=== PATIENT | male | born 1990 | race African-American/Black ===

== ENCOUNTER 2019-02-19 07:01 | Emergency (ER) | payer SELFPAY ==
[~2019-02-19] VITALS: Ht 182.9 cm; Wt 72.6 kg
[2019-02-19 07:12] VITALS: BP 122/68
[2019-02-19] MEDS ORDERED: oxyCODONE/APAP 10/325 1 TAB TABLET PO ONE (08:00)
[2019-02-19] MEDS ORDERED: LIDOCAINE 1% Multi-Dose 20 ML VIAL. INJ ONE (08:00)
[2019-02-19] MEDS ORDERED: SULF1TAB24 PO (09:03)
--- NOTE | 2019-02-19 09:04 | PHYS DOC ---
Past Medical History Past Medical History: Hypertension (BERTJESSIESHAYY Vásquez APRN) Past Surgical History: No Surgical History (BERTLISANDROLowellSHAYY Vásquez APRN) Alcohol Use: None Drug Use: None (BERTLISANDROSIMONE EtienneIndu Vásquez APRN) Adult General Chief Complaint Chief Complaint: ABSCESS HPI HPI Patient is a 28 year old [f__sex] who presents with [] (BERTLISANDROSIMONE EtienneIndu Vásquez APRN) HPI Patient is a 28-year-old male with a 2-3 day history of a progressive painful, swollen, red area to his left buttock. He states over the last couple days become so severe that he's been unable to sit. Also he states the pain was so severe he was unable to sleep last night. He denies any fever chills or sweats. He does not have any particular pain with the bowel movement. (BRETT RUTLEDGE DO) Review of Systems Review of Systems Constitutional: Denies fever or chills [] Eyes: Denies change in visual acuity, redness, or eye pain [] HENT: Denies nasal congestion or sore throat [] Respiratory: Denies cough or shortness of breath [] Cardiovascular: No additional information not addressed in HPI [] GI: Denies abdominal pain, nausea, vomiting, bloody stools or diarrhea [] : Denies dysuria or hematuria [] Musculoskeletal: Denies back pain or joint pain [] Integument: Denies rash or skin lesions [] Neurologic: Denies headache, focal weakness or sensory changes [] Endocrine: Denies polyuria or polydipsia [] All other systems were reviewed and found to be within normal limits, except as documented in this note. (BERTLISANDROSIMONE EtienneIndu Vásquez APRN) Current Medications Current Medications Current Medications Medications (Trade) Dose Ordered Sig/Greg Start Time Stop Time Status Last Admin Dose Admin Lidocaine HCl (Lidocaine 1% 20ml Vial) 20 ml 1X ONCE 02/19/19 08:00 02/19/19 08:02 DC 02/19/19 08:14 20 ML Oxycodone/ Acetaminophen (Percocet 10/325) 1 tab 1X ONCE 02/19/19 08:00 02/19/19 08:02 DC 02/19/19 08:13 1 TAB (BRETT RUTLEDGE DO) Allergies Allergies Allergies Coded Allergies Type Severity Reaction Last Updated Verified No Known Drug Allergies 02/19/19 No (BRETT RUTLDEGE DO) Physical Exam Physical Exam Constitutional: Well developed, well nourished, no acute distress, non-toxic appearance. [] HENT: Normocephalic, atraumatic, bilateral external ears normal, oropharynx moist, no oral exudates, nose normal. [] Eyes: PERRLA, EOMI, conjunctiva normal, no discharge. [] Neck: Normal range of motion, no tenderness, supple, no stridor. [] Cardiovascular:Heart rate regular rhythm, no murmur [] Lungs & Thorax: Bilateral breath sounds clear to auscultation [] Abdomen: Bowel sounds normal, soft, no tenderness, no masses, no pulsatile masses. [] Skin: Warm, dry, no erythema, no rash. [] Back: No tenderness, no CVA tenderness. [] Extremities: No tenderness, no cyanosis, no clubbing, ROM intact, no edema. [] Neurologic: Alert and oriented X 3, normal motor function, normal sensory function, no focal deficits noted. [] Psychologic: Affect normal, judgement normal, mood normal. [] (SHAYY JOHNSTON APRN) Current Patient Data Vital Signs Vital Signs Date Time Temp Pulse Resp B/P (MAP) Pulse Ox O2 Delivery O2 Flow Rate FiO2 02/19/19 08:13 20 93 Room Air 02/19/19 07:12 98.6 62 122/68 (86) 98.6 (BRETT RUTLEDGE DO) EKG EKG [] (SHAYY JOHNSTON APRN) Radiology/Procedures Radiology/Procedures Abscess Incision and Drainage with irrigation by wv: [id number] Location: Anesthesia: Local 1% Lidocaine 2.5mL Technique: Irrigated. Disrupted loculations w/ instrumentation Packing: None Complications: Neurovascularly intact post procedure 48 hour wound check. Scar minimization instructions given. (SHAYY JOHNSTON APRN) Course & Med Decision Making Course & Med Decision Making Pertinent Labs and Imaging studies reviewed. (See chart for details) [] (SHAYY JOHNSTON APRN) Dragon Disclaimer Dragon Disclaimer This electronic medical record was generated, in whole or in part, using a voice recognition dictation system. (SHAYY JOHNSTON APRN) Departure Departure Impression: Primary Impression: Abscess Disposition: 01 HOME, SELF-CARE Referrals: NO PCP (PCP) Patient Instructions: Abscess, Incision and Drainage, Care After, Sitz Bath Additional Instructions: Monitor wound for signs of worsening infection- with concerns follow-up as soon as possible. Tylenol and/or ibuprofen as needed for pain as directed on container. Packing needs removed in 24-48 hours you can return to ER if unable to get into a clinic or a primary doctor. Scripts Hydrocodone/Apap 5-325 (NORCO 5-325 TABLET) 1 Each Tablet 1 TAB PO PRN Q6HRS PRN for PAIN, #10 TAB [address] or drink alcohol while taking this medication Prov: SHAYY JOHNSTON APRN 02/19/19 Sulfamethoxazole/Trimethoprim (BACTRIM DS TABLET) 1 Each Tablet 1 TAB PO BID, #14 TAB 0 Refills Prov: SHAYY JOHNSTON APRN 02/19/19 Incision and Drainage Indication: abscess Procedure: The patient was positioned appropriately. Local anesthesia was [5 mL 1% lidocaine]. An incision was then made over the apex of the lesion and [large amount of purulent] material was expressed. The drainage cavity was irrigated and packed with sterile gauze. The patient�s tetanus status updated as needed. The patient tolerated the procedure well. Complications: none. (BRETT RUTLEDGE DO) SHAYY JOHNSTON APRN Feb 19, 2019 09:04 BRETT RUTLEDGE DO Feb 21, 2019 00:20
[2019-02-19] MEDS ORDERED: HYDR-3164 PO (09:10)
== END 2019-02-19 09:54 | disposition home or self-care (01) ==
LOC: ER 07:01
DX: L02.31 Cutaneous abscess of buttock (principal); I10 Essential (primary) hypertension
CPT/HCPCS: 10060; 99283

== ENCOUNTER 2019-02-20 10:13 | Emergency (ER) | payer SELFPAY ==
[~2019-02-20] VITALS: Ht 182.9 cm; Wt 74.8 kg
[~2019-02-20 10:13] MED LIST: HYDR-3164 PO; SULF1TAB24 PO
[2019-02-20 10:20] VITALS: BP 126/90
--- NOTE | 2019-02-20 10:22 | PHYS DOC ---
Past Medical History Past Medical History: Hypertension Past Surgical History: No Surgical History Alcohol Use: None Drug Use: None Adult General Chief Complaint Chief Complaint: WOUND CHECK HPI HPI Patient is a 28 year old medical presents for wound check for an abscess that was drained yesterday. Patient denies any issues with the wound healing. Review of Systems Review of Systems Constitutional: Denies fever or chills [] Musculoskeletal: Denies back pain or joint pain [] Integument: Visit for wound check for an abscess that was drained yesterday Neurologic: Denies headache, focal weakness or sensory changes [] All other systems were reviewed and found to be within normal limits, except as documented in this note. Allergies Allergies Allergies Coded Allergies Type Severity Reaction Last Updated Verified No Known Drug Allergies 02/19/19 No Physical Exam Physical Exam Constitutional: Well developed, well nourished, no acute distress, non-toxic appearance. [] Skin: Left inner buttock with an open wound with the packing, minimal drainage noted on the packing. No erythema around the wound. Back: No tenderness, no CVA tenderness. [] Extremities: No tenderness, no cyanosis, no clubbing, ROM intact, no edema. [] Neurologic: Alert and oriented X 3, normal motor function, normal sensory function, no focal deficits noted. [] Psychologic: Affect normal, judgement normal, mood normal. [] Current Patient Data Vital Signs Vital Signs Date Time Temp Pulse Resp B/P (MAP) Pulse Ox O2 Delivery O2 Flow Rate FiO2 02/20/19 10:20 98.5 70 18 126/90 (102) 100 Room Air 98.5 EKG EKG [] Radiology/Procedures Radiology/Procedures [] Course & Med Decision Making Course & Med Decision Making Pertinent Labs and Imaging studies reviewed. (See chart for details) This is a 28-year-old male patient who presents to the ED for wound check and packing removal from an abscess that was drained yesterday from the left inner buttock, abscess has minimal drainage, packing was removed. Area was covered with clean dry dressing. Patient is on Bactrim. Wound care instructions and return precautions provided. Follow-up with PCP or general surgery 2 weeks. Dragon Disclaimer Dragon Disclaimer This electronic medical record was generated, in whole or in part, using a voice recognition dictation system. Departure Departure Impression: Primary Impression: Wound check, abscess Disposition: 01 HOME, SELF-CARE Condition: STABLE Referrals: NO PCP (PCP) MELISSA BACON MD follow-up with your own doctor or the provided doctor in 2 weeks Patient Instructions: Wound Check Additional Instructions: You were evaluated in the emergency room, we removed the packing from your wound. Keep the area clean and dry, continue applying warm compresses to the area twice a day. Please complete your antibiotics. Follow-up with your own doctor or the provided general surgeon in 2 weeks. This area will continue to try, apply clean dry dressing as needed. GUS POLK READING COACH Feb 20, 2019 10:22
== END 2019-02-20 10:25 | disposition home or self-care (01) ==
LOC: ER 10:13
DX: L02.31 Cutaneous abscess of buttock (principal); I10 Essential (primary) hypertension
CPT/HCPCS: 99283

== ENCOUNTER 2019-12-02 16:19 | Emergency (ER) | payer OTHER ==
[~2019-12-02] VITALS: Ht 182.9 cm; Wt 73.8 kg
[2019-12-02 16:53] VITALS: BP 139/65
[2019-12-02] MEDS ORDERED: LIDOCAINE WITH 8.4% SOD BICARB 3 ML DISP.SYRIN. INJ ONE (17:15)
[2019-12-02] MEDS ORDERED: DIPH,PERTUSS(ACELL),TET VAC/PF 0.5 ML SYRINGE. VAX IM ONE (17:30)
[2019-12-02] MEDS ORDERED: SULF1TAB24 PO (18:21)
[2019-12-02] MEDS ORDERED: HYDR-3164 PO (18:21)
--- NOTE | 2019-12-02 18:21 | PHYS DOC ---
Past Medical History Past Medical History: Hypertension, Other Additional Past Medical Histor: ABSCESSES (GUS POLK APRN) Past Surgical History: No Surgical History (GUS POLK APRN) Smoking Status: Current Every Day Smoker Additional Information: 0.5 PPD Alcohol Use: Occasionally Drug Use: None (GUS POLK APRN) Attending Signature I have participated in the care of this patient and I have reviewed and agree with all pertinent clinical information above including history, exam, and recommendations. (DEANNE CALDERON MD) Adult General Chief Complaint Chief Complaint: ABSCESS HPI HPI Patient is a 29 year old male who presents to the ED today complaining of an abscess on the left buttock for 2 days. Patient denies any fever. (GUS POLK APRN) Review of Systems Review of Systems Constitutional: Denies fever or chills [] Musculoskeletal: Denies back pain or joint pain [] Integument: Reports left buttock abscess Neurologic: Denies headache, focal weakness or sensory changes [] All other systems were reviewed and found to be within normal limits, except as documented in this note. (GUS POLK APRN) Current Medications Current Medications Current Medications Medications (Trade) Dose Ordered Sig/Greg Start Time Stop Time Status Last Admin Dose Admin Diphtheria/ Tetanus/Acell Pertussis (ADACEL TDap SYRINGE) 0.5 ml ONCE ONCE 12/02/19 17:30 12/02/19 17:31 DC 12/02/19 17:28 0.5 ML Lidocaine HCl (Buffered Lidocaine 1%) 3 ml 1X ONCE 12/02/19 17:15 12/02/19 17:16 DC 12/02/19 17:23 3 ML (DEANNE CALDERON MD) Allergies Allergies Allergies Coded Allergies Type Severity Reaction Last Updated Verified No Known Drug Allergies 02/19/19 No (DEANNE CALDERON MD) Physical Exam Physical Exam Constitutional: Well developed, well nourished, no acute distress, non-toxic appearance. [] Skin: Left inner buttock cheek with a indurated area approximately 2 x 0.5 cm, the area is firm tender to touch warm and erythematous. Back: No tenderness, no CVA tenderness. [] Extremities: No tenderness, no cyanosis, no clubbing, ROM intact, no edema. [] Neurologic: Alert and oriented X 3, normal motor function, normal sensory function, no focal deficits noted. [] Psychologic: Affect normal, judgement normal, mood normal. [] (GUS POLK APRN) Current Patient Data Vital Signs Vital Signs Date Time Temp Pulse Resp B/P (MAP) Pulse Ox O2 Delivery O2 Flow Rate FiO2 12/02/19 16:53 99.0 16 139/65 (89) 99 Room Air 99.0 (DEANNE CALDERON MD) EKG EKG [] (GUS POLK APRN) Radiology/Procedures Radiology/Procedures Indication: abscess to the left buttock Procedure: The patient was positioned appropriately. Local anesthesia was 1% of buffered lidocaine. An incision was then made over the apex of the lesion with an 11 blade and small amount of yellow purulent material was expressed. The drainage cavity was irrigated and covered with sterile gauze. The patients tetanus status updated as needed. The patient tolerated the procedure well. Complications: none.[] (GUS POLK APRN) Course & Med Decision Making Course & Med Decision Making Pertinent Labs and Imaging studies reviewed. (See chart for details) This is a 29-year-old male patient presenting to the ED today with a left buttock abscess with cellulitis that was drained in the emergency room by me as noted in procedures. Tetanus is updated. Discharged on Bactrim. Follow-up with general surgeon. (GUS POLK APRN) Dragon Disclaimer Dragon Disclaimer This electronic medical record was generated, in whole or in part, using a voice recognition dictation system. (GUS POLK APRN) Departure Departure Impression: Primary Impression: Cellulitis and abscess of buttock Disposition: HOME, SELF-CARE Condition: STABLE Referrals: NO PCP (PCP) ROSANA ARDON MD Follow-up in 1 to 2 weeks Patient Instructions: Abscess Additional Instructions: You have an abscess on the left buttock. Keep the area clean and dry. Continue applying warm compresses to the area twice a day. Take the prescribed antibiotics until completed. Scripts Hydrocodone/Apap 5-325 (NORCO 5-325 TABLET) 1 Each Tablet 1 TAB PO Q6HRS, #10 TAB Prov: GUS POLK APRN 12/02/19 Sulfamethoxazole/Trimethoprim (BACTRIM DS TABLET) 1 Each Tablet 1 TAB PO BID for 10 Days, #20 TAB 0 Refills Prov: GUS POLK APRN 12/02/19 GUS POLK APRN Dec 02, 2019 18:21 DEANNE CALDERON MD Dec 02, 2019 19:48
== END 2019-12-02 18:37 | disposition home or self-care (01) ==
LOC: ER 16:19
DX: L02.31 Cutaneous abscess of buttock (principal); I10 Essential (primary) hypertension; F17.200 Nicotine dependence, unspecified, uncomplicated
CPT/HCPCS: 10060; 90471; 90715; 99283; J3490

== ENCOUNTER 2020-06-06 22:36 | Emergency (ER) | payer OTHER ==
[~2020-06-06] VITALS: Ht 182.9 cm; Wt 72.7 kg
[2020-06-06] MEDS ORDERED: LIDOCAINE 1% Multi-Dose 20 ML VIAL. ONE (22:51)
[2020-06-06 22:55] VITALS: BP 138/80
[2020-06-06] MEDS ORDERED: LIDOCAINE 1%/EPI 1:100,000 20 ML VIAL. INJ ONE (23:00)
[2020-06-06] MEDS ORDERED: HYDR-3164 PO (23:13)
[2020-06-06] MEDS ORDERED: SULF1TAB23 PO (23:13)
--- NOTE | 2020-06-06 23:13 | PHYS DOC ---
Past Medical History Past Medical History: Hypertension, Other Additional Past Medical Histor: ABSCESSES Past Surgical History: No Surgical History Smoking Status: Current Every Day Smoker Alcohol Use: Occasionally Drug Use: None General Adult EDM: Chief Complaint: ABSCESS HPI: HPI: Patient is a 30 year old male who presents with a 3-day history of abscess to the buttocks area. Patient's had abscesses in the area in the past that have had to be drained but he describes 10 out of 10 pain is worse with palpation and buttocks area worse on the left side. Patient has not had a fever chills cough or any other symptoms. Pain is nonradiating and throbbing in nature Review of Systems: Review of Systems: Constitutional: Denies fever or chills. [] Eyes: Denies change in visual acuity. [] HENT: Denies nasal congestion or sore throat. [] Respiratory: Denies cough or shortness of breath. [] Cardiovascular: Denies chest pain or edema. [] GI: Denies abdominal pain, nausea, vomiting, bloody stools or diarrhea. [] : Denies dysuria. [] Musculoskeletal: Denies back pain or joint pain. [] Integument: Denies rash. [] Neurologic: Denies headache, focal weakness or sensory changes. [] Endocrine: Denies polyuria or polydipsia. [] Lymphatic: Denies swollen glands. [] Psychiatric: Denies depression or anxiety. [] Heart Score: Risk Factors: Risk Factors: DM, Current or recent (<one month) smoker, HTN, HLP, family history of CAD, obesity. Risk Scores: Score 0 - 3: 2.5% MACE over next 6 weeks - Discharge Home Score 4 - 6: 20.3% MACE over next 6 weeks - Admit for Clinical Observation Score 7 - 10: 72.7% MACE over next 6 weeks - Early Invasive Strategies Current Medications: Current Medications Medications (Trade) Dose Ordered Sig/Greg Start Time Stop Time Status Last Admin Dose Admin Lidocaine HCl (Lidocaine 1% 20ml Vial) 20 ml STK-MED ONCE 06/06/20 22:51 06/06/20 22:51 DC Lidocaine/ Epinephrine (LIDOCAINE 1%-EPI 1:100,000 Multi-Dose) 20 ml 1X ONCE 06/06/20 23:00 06/06/20 23:01 DC 06/06/20 22:53 20 ML Allergies: Allergies: Allergies Coded Allergies Type Severity Reaction Last Updated Verified No Known Drug Allergies 02/19/19 No Physical Exam: PE: Constitutional: Well developed, well nourished, no acute distress, non-toxic appearance. [] HENT: Normocephalic, atraumatic, bilateral external ears normal, no trismus nose normal. [] Eyes: PERRLA, EOMI, conjunctiva normal, no discharge. [] Neck: Normal range of motion, no tenderness, supple, no stridor. [] Cardiovascular:Heart rate regular rhythm, peripheral pulses intact cap refill is brisk Lungs & Thorax: Bilateral breath sounds clear, no respiratory distress Abdomen: Soft nondistended Skin: Warm, dry, no rash, fluctuant area in the pilonidal area predominantly on the left side of the buttocks. No extension into the anus. Back: No tenderness, no CVA tenderness. [] Extremities: No tenderness, no cyanosis, no clubbing, ROM intact, no edema. [] Neurologic: Alert and oriented X 3, normal motor function, normal sensory function, no focal deficits noted. [] Psychologic: Affect normal, judgement normal, mood normal. [] Current Patient Data: Vital Signs: Vital Signs Date Time Temp Pulse Resp B/P (MAP) Pulse Ox O2 Delivery O2 Flow Rate FiO2 06/06/20 22:55 98.9 82 16 138/80 (99) 99 Room Air 98.9 EKG: EKG: [] Radiology/Procedures: Radiology/Procedures: [] Clinical indication pilonidal abscess Procedure incision and drainage After obtaining informed consent fluctuant area was prepped and draped with Betadine. 1% lidocaine with epinephrine was used to anesthetize the area. An 11 blade was used to make an incision, a large amount of purulent material was expressed, the abscess was probed to break up any loculations, the wound was then irrigated copiously with normal saline and 1/2 inch gauze was used to pack the wound. Course & Med Decision Making: Course & Med Decision Making Pertinent Labs and Imaging studies reviewed. (See chart for details) [] I discussed with the patient the need for follow-up here in 2 days but also need for surgery follow-up to take care of the cyst. Jessie Disclaimer: Jessie Disclaimer: This electronic medical record was generated, in whole or in part, using a voice recognition dictation system. Departure Departure Impression: Primary Impression: Pilonidal abscess Disposition: 01 HOME, SELF-CARE Condition: STABLE Referrals: NO PCP (PCP) ROSANA ARDON MD Follow-up in the ER in 2 days for packing removal but then you will need to follow-up with a general surgeon once the wound heals for cyst removal Patient Instructions: Abscess, Pilonidal Cyst Additional Instructions: EMERGENCY DEPARTMENT GENERAL DISCHARGE INSTRUCTIONS THANK YOU for coming to [facility] Emergency Department (ED) joo workman and trusting us with your care. We trust that you had a positive experience in our Emergency Department. If you wish to speak to the department Management you can contact the supervisor beam department at . YOUR FOLLOW UP INSTRUCTIONS ARE FOLLOWS: Do you have a private doctor? If you do not have a private doctor, please ask for a resource list of physicians or clinics that may be able to assist you with follow up care. The Emergency Physician has interpreted your x-rays. The X-ray specialist will also review them. If there is a change in the findings you will be notified in 48 hours when at all possible. A lab test or lab culture may have been done, your results will be reviewed and you will be notified if you need a change in treatment. ADDITIONAL INSTRUCTIONS AND INFORMATION Your care today has been supervised by a physician who is specially trained in emergency care. Many problems require more than one evaluation for a complete diagnosis and treatment. We recommend that you schedule your follow up appointment as recommended to ensure complete treatment of your illness or injury. If you are unable to obtain follow up care and continue to have a problem, or if your condition worsens we recommend that you return to the ED. We are not able to safely determine your condition over the phone nor are we able to give sound medical advice over the phone. For these safety reasons, if you call for medical advice we will ask you to come to the ED for further evaluation If you have any questions regarding these discharge instructions please call the ED at . SAFETY INFORMATION In the interest of safety, wellness, and injury prevention; we encourage you to wear your seatbelt, if you smoke; quit smoking, and we encourage your family to use protective helmet for bicycling and other sporting events that present an increased risk for head injury. IF YOUR SYMPTOMS WORSEN OR NEW SYMPTOMS DEVELOP, OR YOU HAVE CONCERNS ABOUT YOUR CONDITION; OR IF YOUR CONDITION WORSENS WHILE YOU ARE WAITING FOR YOUR FOLLOW UP APPOINTMENT; EITHER CONTACT YOUR PRIMARY CARE DOCTOR, THE PHYSICIAN WHOSE NAME AND NUMBER YOU WERE GIVEN, OR RETURN TO THE ED IMMEDIATELY. Scripts Hydrocodone/Apap 5-325 (NORCO 5-325 TABLET) 1 Each Tablet 1-2 EACH PO PRN Q6HRS PRN for PAIN, #15 as needed for pain Prov: JOSE ANDERSON MD 06/06/20 Sulfamethoxazole/Trimethoprim (BACTRIM 400-80 MG TABLET) 1 Each Tablet 1 TAB PO BID for 10 Days, #20 TAB 0 Refills Prov: JOSE ANDERSON MD 06/06/20 JOSE ANDERSON MD Jun 06, 2020 23:13
[2020-06-06] MEDS ORDERED: HYDROcodone/APAP 7.5/325MG 1 TAB TABLET PO ONE (23:15)
[2020-06-06] MEDS ORDERED: SMZ/TMP 800/160MG TABLET. PO ONE (23:15)
== END 2020-06-06 23:15 | disposition home or self-care (01) ==
LOC: ER 22:36
DX: L05.01 Pilonidal cyst with abscess (principal); I10 Essential (primary) hypertension; F17.200 Nicotine dependence, unspecified, uncomplicated
CPT/HCPCS: 10080; 99283; J3490

== ENCOUNTER 2021-07-31 09:48 | Emergency (ER) | payer SELFPAY ==
[~2021-07-31] VITALS: Ht 182.9 cm; Wt 81.3 kg
[~2021-07-31 09:48] MED LIST changes: +SULF1TAB23 PO
--- NOTE | 2021-07-31 10:22 | PHYS DOC ---
Past Medical History Past Medical History: Hypertension, Other Additional Past Medical Histor: ABSCESSES (KISHAN CONSTANTINO) Past Surgical History: No Surgical History (KISHAN CONSTANTINO) Smoking Status: Current Every Day Smoker Alcohol Use: Occasionally Drug Use: None (KISHAN CONSTANTINO) General Adult EDM: Chief Complaint: ABSCESS HPI: HPI: Patient is a 31 year old male with history of recurrent abscesses who presents with abscess to the left buttock. Patient states his pain is severe and prevents him from sitting on or touching his buttocks. He reports associated inguinal tenderness. Patient reports he has had prior abscesses in the area before that have required incision and drainage. He denies rectal involvement. Tetanus vaccination was updated less than 5 years ago. Patient denies fever, chills, night sweats, abdominal pain, NVD, constipation, hematuria, dysuria. (KISHAN CONSTANTINO) Review of Systems: Review of Systems: ROS negative except as mentioned in HPI. (KISHAN CONSTANTINO) Heart Score: C/O Chest Pain: No (KISHAN CONSTANTINO) Allergies: Allergies: Allergies Coded Allergies Type Severity Reaction Last Updated Verified No Known Drug Allergies 07/31/21 No (KISHAN CONSTANTINO) Physical Exam: PE: Constitutional: Well developed, well nourished, no acute distress, non-toxic appearance. Patient is laying prone on the exam bed. Cardiovascular: Heart rate regular rhythm, no murmur. Lungs & Thorax: Bilateral breath sounds clear to auscultation. Abdomen: Bowel sounds normal, soft, no tenderness, no masses, no pulsatile masses. Skin: Erythematous raised lesion noted to the medial aspect of the left buttocks in the gluteal cleft midway between the sacral prominence and anus with induration and central clearing with fluctuance, no fissures or active drainage appreciated. Skin otherwise warm, dry, no erythema, no rash. Back: No tenderness, no CVA tenderness. Extremities: No tenderness, no cyanosis, no clubbing, ROM intact, no edema. (KISHAN CONSTANTINO) Current Patient Data: Vital Signs: Vital Signs Date Time Temp Pulse Resp B/P (MAP) Pulse Ox O2 Delivery O2 Flow Rate FiO2 07/31/21 11:27 71 18 143/84 (103) 98 Room Air 07/31/21 10:00 98.0 90 24 167/93 (117) 100 Room Air 98.0 (KISHAN CONSTANTINO) Course & Med Decision Making: Course & Med Decision Making Pertinent Labs and Imaging studies reviewed. (See chart for details) Abscess will be incised and drained. See below for I&D procedure note. Patient tolerated procedure well. Antibiotics will be prescribed for 7 days. Patient should return to emergency department for signs of systemic infection. Patient understands and is agreeable to discharge plan. (KISHAN CONSTANTINO) Dragon Disclaimer: Dragon Disclaimer: This electronic medical record was generated, in whole or in part, using a voice recognition dictation system. (KISHAN CONSTANTINO) Incision and Drainage Indication: abscess Procedure: The patient was positioned appropriately. Local anesthesia was 4 mL 1% lidocaine with epinephrine. An incision was then made over the apex of the lesion and approximately 8 cc purulent material was expressed. The drainage cavity was irrigated with sterile saline. The patients tetanus status is already up-to-date. The patient tolerated the procedure well. Complications: No complications. (KISHAN CONSTANTINO) Departure Departure Impression: Primary Impression: Cellulitis and abscess of buttock Disposition: HOME / SELF CARE / HOMELESS Condition: STABLE Referrals: NO PCP (PCP) Patient Instructions: Abscess, [id number] Scripts Sulfamethoxazole/Trimethoprim (BACTRIM DS TABLET) 1 Each Tablet 2 TAB PO BID for 7 Days, #28 TAB 0 Refills Prov: KISHAN CONSTANTINO 07/31/21 Attending Signature Attending Signature I have reviewed the PA/HYDRAULICS TEACHER's note and plan of care. I was available for consultation as needed during the patient's visit in the emergency department. I agree with the clinical impression, plan, and disposition. (ARMANDO FATIMA DO) KISHAN CONSTANTINO Jul 31, 2021 10:22 ARMANDO FATIMA DO Jul 31, 2021 17:30
[2021-07-31] MEDS ORDERED: LIDOCAINE 1%/EPI 1:100,000 20 ML VIAL. INJ ONE (10:30)
[2021-07-31] MEDS ORDERED: SULF1TAB24 PO (11:12)
[2021-07-31 11:27] VITALS: BP 143/84
== END 2021-07-31 11:27 | disposition home or self-care (01) ==
LOC: ER 09:48
DX: L02.31 Cutaneous abscess of buttock (principal); I10 Essential (primary) hypertension; F17.200 Nicotine dependence, unspecified, uncomplicated
CPT/HCPCS: 10060; 99283; J3490; 96360

== ENCOUNTER 2021-11-01 14:49 | Emergency (ER) | payer SELFPAY ==
[~2021-11-01] VITALS: Ht 182.9 cm; Wt 77.3 kg
[2021-11-01] MEDS ORDERED: MORPHINE SULFATE 4 MG/ML INJ. IM ONE (16:30)
[2021-11-01] MEDS ORDERED: cefTRIAXone IM 1 GM VIAL IM ONE (16:30)
[2021-11-01] MEDS ORDERED: LIDOCAINE 1% PF 2 ML VIAL. INJ ONE (16:30)
[2021-11-01] MEDS ORDERED: SULF1TAB24 PO (17:09)
[2021-11-01] MEDS ORDERED: NAPR-514 PO (17:09)
[2021-11-01] MEDS ORDERED: HYDR-2761 PO (17:09)
--- NOTE | 2021-11-01 17:12 | PHYS DOC ---
Past Medical History Past Medical History: Hypertension, Other Additional Past Medical Histor: ABSCESSES Past Surgical History: No Surgical History Smoking Status: Current Every Day Smoker Alcohol Use: Occasionally Drug Use: None General Adult EDM: Chief Complaint: ABSCESS HPI: HPI: Patient is a 31 year old male with history of hypertension who presents to the ED today complaining of right inner buttock abscess. Patient states symptoms began 2 days ago. He states 3 to 4 months ago he had another abscess to the region that was lanced. Patient denies any fever. Review of Systems: Review of Systems: Constitutional: Denies fever or chills. [] Musculoskeletal: Denies back pain or joint pain. [] Integument: Reports right inner buttock abscess Neurologic: Denies headache, focal weakness or sensory changes. [] Psychiatric: Denies depression or anxiety. [] Heart Score: C/O Chest Pain: N/A Risk Factors: Risk Factors: DM, Current or recent (<one month) smoker, HTN, HLP, family hi story of CAD, obesity. Risk Scores: Score 0 - 3: 2.5% MACE over next 6 weeks - Discharge Home Score 4 - 6: 20.3% MACE over next 6 weeks - Admit for Clinical Observation Score 7 - 10: 72.7% MACE over next 6 weeks - Early Invasive Strategies Current Medications: Current Medications Medications (Trade) Dose Ordered Sig/Greg Start Time Stop Time Status Last Admin Dose Admin Ceftriaxone Sodium (Rocephin Im) 1 gm 1X ONCE 11/01/21 16:30 11/01/21 16:33 DC 11/01/21 16:54 1 GM Lidocaine HCl (Xylocaine-Mpf 1% 2ml Vial) 2 ml 1X ONCE 11/01/21 16:30 11/01/21 16:33 DC 11/01/21 16:54 2 ML Morphine Sulfate (Morphine Sulfate) 4 mg 1X ONCE 11/01/21 16:30 11/01/21 16:33 DC 11/01/21 16:54 4 MG Allergies: Allergies: Allergies Coded Allergies Type Severity Reaction Last Updated Verified No Known Drug Allergies 07/31/21 No Physical Exam: PE: Constitutional: Well developed, well nourished, no acute distress, non-toxic appearance. [] Skin: Exam very difficult, patient would not allow me to evaluate the region, he is clenching his butt cheeks together and getting the right inner buttock. I could feel a palpable abscess type mass on the right inner buttock but could not evaluate for fluctuance, there is some redness and warmth noted. Moderate tenderness. Back: No tenderness, no CVA tenderness. [] Extremities: No tenderness, no cyanosis, no clubbing, ROM intact, no edema. [] Neurologic: Alert and oriented X 3, normal motor function, normal sensory function, no focal deficits noted. [] Psychologic: Affect normal, judgement normal, mood normal. [] Current Patient Data: Vital Signs: Vital Signs Date Time Temp Pulse Resp B/P (MAP) Pulse Ox O2 Delivery O2 Flow Rate FiO2 11/01/21 16:54 17 97 Room Air 11/01/21 16:18 82 164/92 (116) 11/01/21 15:32 99.6 99.6 EKG: EKG: [] Radiology/Procedures: Radiology/Procedures: [] Course & Med Decision Making: Course & Med Decision Making Pertinent Labs and Imaging studies reviewed. (See chart for details) This a 31-year-old male patient presented to the ED today with an abscess of the right inner buttock that began 2 days ago. Patient clenching his buttocks together and guarding the right inner buttock i was unable to evaluate the region. Given Rocephin IM in the ED. Discharged on Bactrim. Warm compresses recommended. Provided general surgeon for follow-up and instructed to come to the ED at any point he is willing to go through the exam and have the region lanced, tetanus up-to-date. Jessie Disclaimer: Jessie Disclaimer: This electronic medical record was generated, in whole or in part, using a voice recognition dictation system. Departure Departure Impression: Primary Impression: Cellulitis and abscess of buttock Disposition: HOME / SELF CARE / HOMELESS Condition: STABLE Referrals: NO PCP (PCP) ROSANA ARDON MD follow up with the provided surgeon as soon as you can Patient Instructions: Abscess Additional Instructions: You have an abscess to the right buttock. Please apply warm compresses to the area 3 times a day. Take the prescribed antibiotics as ordered until completed. Follow-up with the provided surgeon as soon as you can. Please come back to the ED at any point symptoms worsen Scripts Naproxen (NAPROXEN) 500 Mg Tablet 1 TAB PO BID for pain, #14 TAB 0 Refills Prov: GUS POLK APRN 11/01/21 Hydrocodone Bit/Acetaminophen (HYDROCODONE-APAP 5-325 ) 1 Tab Tablet 1 TAB PO PRN Q6HRS PRN for PAIN, #14 TAB 0 Refills Prov: GUS POLK APRN 11/01/21 Sulfamethoxazole/Trimethoprim (BACTRIM DS TABLET) 1 Each Tablet 1 TAB PO BID for 10 Days, #20 TAB 0 Refills Prov: GUS POLK APRN 11/01/21 GUS POLK APRN Nov 01, 2021 17:12
[2021-11-01 17:20] VITALS: BP 157/89
== END 2021-11-01 17:23 | disposition home or self-care (01) ==
LOC: ER 14:49
DX: L02.31 Cutaneous abscess of buttock (principal); I10 Essential (primary) hypertension; F17.200 Nicotine dependence, unspecified, uncomplicated
CPT/HCPCS: 96372; 99284; J0696; J2270; J3490